=== PATIENT | male | born 1960 | race Caucasian/White ===

== ENCOUNTER 2024-01-24 07:50 | Emergency (ER) | payer MEDICARE, OTHER ==
[2024-01-24] MEDS: KETOROLAC 15 MG/ML 1 ML VIAL IVP STA (08:12)
[2024-01-24 08:20] LABS: Basophils % (A) 0 %; Eosinophils % (A) 0 %; HCT 35.7 % (39.0-53.0); HGB 11.8 gm/dL (13.0-17.5); Lymphocytes # (A) 0.6 k/uL (1.0-4.8); Lymphocytes % (A) 8 %; MCH 30.8 pg (25.0-35.0); MCHC 33.1 g/dL (31.0-37.0); MCV 93.2 fL (80.0-100.0); Mean Platelet Volume 7.9; Monocytes # (A) 0.5 k/uL (0-1.0); Monocytes % (A) 7 %; Neutrophils # (A) 6.6 k/uL (1.3-7.7); Neutrophils % (A) 83 %; Platelet Count 292 k/uL (150-450); RBC 3.84 m/uL (4.30-5.90); RDW 14.4 % (11.5-15.5); WBC 7.9 k/uL (3.8-10.6)
[2024-01-24 08:27] VITALS: RESP 18; TEMP 98.4
[2024-01-24] MEDS: MORPHINE SULFATE 4 MG/ML SYRINGE IVP STA (08:36)
--- NOTE | 2024-01-24 08:39 | XR ---
EXAMINATION TYPE: XR chest 2V, XR shoulder complete 3 views LT DATE OF EXAM: 01/24/2024 COMPARISON: None HISTORY: 64-year-old male syncope FINDINGS: Chest: The cardiomediastinal silhouette, aorta, and pulmonary vasculature are within normal limits. Lungs an d pleural spaces are clear. Left shoulder: There is a minimally comminuted and slightly obliqued surgical neck fracture of the proximal left hum erus. There is 9 mm impaction, lateral and anterior apex angulation, and 9 mm of anterior displacemen t. The glenohumeral joint appears intact. IMPRESSION: 1. Chest: No acute cardiopulmonary process. 2. Left shoulder: Minimally comminuted surgical neck fracture of the proximal left humerus. The main fracture line is slightly obliqued. 9 mm of impaction, 9 mm of anterior displacement, and lateral and anterior apex angulation.
[2024-01-24 08:43] LABS: ALT 41 U/L (4-49); AST 37 U/L (17-59); African American GFR (CKD) >90 (>60 ml/min/1.73 sqM); Albumin 3.4 g/dL (3.5-5.0); Alkaline Phosphatase 77 U/L (38-126); Anion Gap 9 mmol/L; Blood Urea Nitrogen 16 mg/dL (9-20); Calcium 8.9 mg/dL (8.4-10.2); Carbon Dioxide 22 mmol/L (22-30); Chloride 102 mmol/L (98-107); Glucose 129 mg/dL (74-99); Magnesium 1.9 mg/dL (1.6-2.3); Non-African American GFR(CKD) >90 (>60 ml/min/1.73 sqM); Potassium 4.3 mmol/L (3.5-5.1); Sodium 133 mmol/L (137-145); Total Bilirubin 0.4 mg/dL (0.2-1.3); Total Protein 5.9 g/dL (6.3-8.2)
--- NOTE | 2024-01-24 09:15 | ED ---
Fall HPI - General Chief Complaint: Fall Stated Complaint: Fall, syncope Time Seen by Provider: 01/24/24 08:00 Source: patient, EMS Mode of arrival: EMS - History of Present Illness Initial Comments: 64-year-old male with past medical history of diabetes, high cholesterol who presents to the emergency department as a transfer from [place]. Patient was standing in line to get breakfast when he had a syncopal episode. States he did not feel the episode coming on. Patient fell to the ground and landed on his left arm. According to the transfer note the fall was unwitnessed. Patient states that he was standing in line to get food and therefore there were several people around him. He denies hitting his head. He denies any neck or back pain. He is right-hand dominant. He denies any chest pain or shortness of breath. He has been at [place] for 10 days. Patient drinks alcohol. Denies use of any other drugs. No other alleviating, precipitating or modifying factors - Related Data Home Medications Medication Instructions Recorded Confirmed Atorvastatin [Lipitor] 40 mg PO HS 01/24/24 01/24/24 Empagliflozin [Jardiance] 25 mg PO DAILY 01/24/24 01/24/24 Ergocalciferol [Vitamin D2 (1250 1,250 mcg PO WEEKLY 01/24/24 01/24/24 Mcg = [id number] Iu)] Insulin Detemir (Levemir) [Levemir] 15 unit SQ DAILY 01/24/24 01/24/24 Previous Rx's Medication Instructions Recorded HYDROcodone/APAP 10-325MG [Mclean 1 tab PO Q4HR PRN 3 Days #18 tab 01/24/24 10-325] Ketorolac [Toradol] 10 mg PO Q8HR #15 tab 01/24/24 Allergies Allergy/AdvReac Type Severity Reaction Status Date / Time No Known Allergies Allergy Verified 01/24/24 08:38 Review of Systems ROS Statement: Those systems with pertinent positive or pertinent negative responses have been documented in the HPI. ROS Other: All systems not noted in ROS Statement are negative. Past Medical History Past Medical History: Diabetes Mellitus, Hyperlipidemia History of Any Multi-Drug Resistant Organisms: None Reported Past Surgical History: No Surgical Hx Reported Past Psychological History: No Psychological Hx Reported Smoking Status: Current every day smoker Past Alcohol Use History: Abuse Past Drug Use History: None Reported General Exam General appearance: alert, in no apparent distress Head exam: Present: atraumatic, normocephalic, normal inspection Eye exam: Present: normal appearance, PERRL, EOMI. Absent: scleral icterus, conjunctival injection, periorbital swelling ENT exam: Present: normal exam, mucous membranes moist Neck exam: Present: normal inspection. Absent: tenderness, meningismus, lymphadenopathy Respiratory exam: Present: normal lung sounds bilaterally. Absent: respiratory distress, wheezes, rales, rhonchi, stridor Cardiovascular Exam: Present: regular rate, normal rhythm, normal heart sounds. Absent: systolic murmur, diastolic murmur, rubs, gallop, clicks GI/Abdominal exam: Present: soft, normal bowel sounds. Absent: distended, tenderness, guarding, rebound, rigid Extremities exam: Present: tenderness (The proximal left humerus where there is overlying swelling and gross deformity. Patient cannot range of motion the left arm at all), normal capillary refill. Absent: pedal edema, joint swelling, calf tenderness Back exam: Present: normal inspection Neurological exam: Present: alert, oriented X3, CN II-XII intact Psychiatric exam: Present: normal affect, normal mood Skin exam: Present: warm, dry, intact, normal color. Absent: rash Course Vital Signs 01/24/24 01/24/24 01/24/24 07:57 09:53 10:10 Temperature 98.4 F 98.4 F Pulse Rate 83 74 76 Respiratory 18 18 18 Rate Blood Pressure 107/77 94/83 117/81 O2 Sat by Pulse 98 95 98 Oximetry Medical Decision Making - Medical Decision Making Was pt. sent in by a medical professional or institution (, PA, VP PATIENT, urgent care, hospital, or custodial...) When possible be specific @ -[place] Did you speak to anyone other than the patient for history (EMS, parent, family, police, friend...)? What history was obtained from this source @ -EMS Did you review nursing and triage notes (agree or disagree)? Why? @ -I reviewed and agree with nursing and triage notes Were old charts reviewed (outside hosp., previous admission, EMS record, old EK G, old radiological studies, urgent care reports/EKG's, custodial records)? Report findings @ -I reviewed patient's paperwork that comes from [place] with him Differential Diagnosis (chest pain, altered mental status, abdominal pain women, abdominal pain men, vaginal bleeding, weakness, fever, dyspnea, syncope, headache, dizziness, GI bleed, back pain, seizure, CVA, palpatations, mental health, musculoskeletal)? @ -Differential Musculoskeletal Muscular strain, contusion, ligament sprain, fracture, arthritis, septic arthritis, bursitis, cellulitis, muscle spasm, nerve compression, DVT, arterial occlusion, herpes zoster, electrolyte abnormality, tumor.... This is not meant to be in all inclusive list EKG interpreted by me (3pts min.). @ -Yes and demonstrates sinus rhythm with a rate of 82. NJ interval 149. QRS 115. QTc 425. No acute ST segment elevations or depressions X-rays interpreted by me (1pt min.). @ -Yes and demonstrates left humeral neck fracture CT interpreted by me (1pt min.). @ -None done U/S interpreted by me (1pt. min.). @ -None done What testing was considered but not performed or refused? (CT, X-rays, U/S, labs)? Why? @ -CT head was considered however patient does not believe he hit his head What meds were considered but not given or refused? Why? @ -None Did you discuss the management of the patient with other professionals (professionals i.e. , PA, VP PATIENT, lab, RT, psych nurse, social work nurse, air vice marshal, teacher, customer service security officer, bottle caser)? Give summary @ -I discussed the patient's care with Dr. Apple and with the orthopedic PA. Both of these individuals does not feel that the patient can be admitted to the hospital just for pain control Was smoking cessation discussed for >3mins.? @ -No Was critical care preformed (if so, how long)? @ -No Were there social determinants of health that impacted care today? How? (Homelessness, low income, unemployed, alcoholism, drug addiction, transportation, low edu. Level, literacy, decrease access to med. care, residential, rehab)? @ -Patient is in rehab Was there de-escalation of care discussed even if they declined (Discuss DNR or withdrawal of care, Hospice)? DNR status @ -No What co-morbidities impacted this encounter? (DM, HTN, Smoking, COPD, CAD, Cancer, CVA, ARF, Chemo, Hep., AIDS, mental health diagnosis, sleep apnea, morbid obesity)? @ -Alcohol abuse Was patient admitted / discharged? Hospital course, mention meds given and route, prescriptions, significant lab abnormalities, going to OR and other pertinent info. @ -Discharged. Upon arrival patient was placed into room 15. Thorough history and physical exam was performed. Twelve-lead EKG is obtained. Laboratory stud ies are conducted. X-ray was performed which demonstrates a left humeral neck fracture. Patient is placed in a sling. He is given Toradol, morphine and Dilaudid with only slight improvement in his pain. Because of this and knowing that the patient cannot go back to [place] with any narcotic medications I did call and speak with Dr. Apple and the orthopedic PA. They both refuse admission on the patient stating that he does not meet criteria for admission. I spoke with the patient in regards to this. He states that he will go back to [place] to collect his belongings but will eventually leave. Patient should follow-up with orthopedics in office. I did give him some referrals down in [facility] as patient is from [facility]. Patient will be provided with pain medications that he is to alternate. Instructed him to return for any new or worsening symptoms. Patient agreeable to plan he was discharged in stable condition Undiagnosed new problem with uncertain prognosis? @ -No Drug Therapy requiring intensive monitoring for toxicity (Heparin, Nitro, Insulin, Cardizem)? @ -No Were any procedures done? @ -No Diagnosis/symptom? @ -Acute syncope, fall, left humeral neck fracture Acute, or Chronic, or Acute on Chronic? @ -Acute Uncomplicated (without systemic symptoms) or Complicated (systemic symptoms)? @ -Complicated Side effects of treatment? @ -No Exacerbation, Progression, or Severe Exacerbation? @ -No Poses a threat to life or bodily function? How? (Chest pain, [place], [place], pneumonia, PE, COPD, DKA, ARF, appy, cholecystitis, CVA, Diverticulitis, Homicidal, Suicidal, threat to staff... and all critical care pts) @ -No - Lab Data Result diagrams: 01/24/24 08:07 01/24/24 08:07 Lab Results 01/24/24 01/24/24 01/24/24 Range/Units 08:07 08:07 08:07 WBC 7.9 (3.8-10.6) k/uL RBC 3.84 L (4.30-5.90) m/uL Hgb 11.8 L (13.0-17.5) gm/dL Hct 35.7 L (39.0-53.0) % MCV 93.2 (80.0-100.0) fL MCH 30.8 (25.0-35.0) pg MCHC 33.1 (31.0-37.0) g/dL RDW 14.4 (11.5-15.5) % Plt Count 292 (150-450) k/uL MPV 7.9 Neutrophils % 83 % Lymphocytes % 8 % Monocytes % 7 % Eosinophils % 0 % Basophils % 0 % Neutrophils # 6.6 (1.3-7.7) k/uL Lymphocytes # 0.6 L (1.0-4.8) k/uL Monocytes # 0.5 (0-1.0) k/uL Eosinophils # 0.0 (0-0.7) k/uL Basophils # 0.0 (0-0.2) k/uL Sodium 133 L (137-145) mmol/L Potassium 4.3 (3.5-5.1) mmol/L Chloride 102 (98-107) mmol/L Carbon Dioxide 22 (22-30) mmol/L Anion Gap 9 mmol/L BUN 16 (9-20) mg/dL Creatinine 0.68 (0.66-1.25) mg/dL Est GFR (CKD-EPI)AfAm >90 (>60 ml/min/1.73 sqM) Est GFR (CKD-EPI)NonAf >90 (>60 ml/min/1.73 sqM) Glucose 129 H (74-99) mg/dL Calcium 8.9 (8.4-10.2) mg/dL Magnesium 1.9 (1.6-2.3) mg/dL Total Bilirubin 0.4 (0.2-1.3) mg/dL AST 37 (17-59) U/L ALT 41 (4-49) U/L Alkaline Phosphatase 77 (38-126) U/L Troponin I <0.012 (0.000-0.034) ng/mL Total Protein 5.9 L (6.3-8.2) g/dL Albumin 3.4 L (3.5-5.0) g/dL Disposition Clinical Impression: Syncope, Fall, Left humeral fracture Disposition: HOME SELF-CARE Condition: Stable Instructions (If sedation given, give patient instructions): Arm Fracture in Adults (DC) Additional Instructions: Wear the sling. Follow-up with orthopedic surgeon. Alternate taking the pain medications every 4 hours. Return for any new or worsening symptoms Prescriptions: HYDROcodone/APAP 10-325MG [Mclean 10-325] 1 tab PO Q4HR PRN 3 Days #18 tab PRN Reason: Pain Ketorolac [Toradol] 10 mg PO Q8HR #15 tab Is patient prescribed a controlled substance at d/c from ED?: Yes When asked, does pt state using other controlled substances?: No If prescribed controlled substance>3 days was MAPS reviewed?: Prescribed <3 Days If opioid is for acute pain is fill amount 7 days or less?: Yes Referrals: Nonstaff,Physician [Primary Care Provider] - 1-2 days Willian Lynn DO [REFERRING] - 1-2 days Go Sweeney MD [REFERRING] - 1-2 days Time of Disposition: 09:14
[2024-01-24] MEDS: HYDROmorphone 1 MG/ML 1 ML SYRINGE IVP STA (09:38)
[2024-01-24 10:47] VITALS: BP 117/81; PULSE 76
== END 2024-01-24 10:10 | disposition home or self-care (01) ==
LOC: EC 07:50
DX: S42.212A Unspecified displaced fracture of surgical neck of left humerus, initial encounter for closed fracture (principal); R55 Syncope and collapse; E11.9 Type 2 diabetes mellitus without complications; E78.00 Pure hypercholesterolemia, unspecified; F17.200 Nicotine dependence, unspecified, uncomplicated; Z79.899 Other long term (current) drug therapy; Z79.4 Long term (current) use of insulin; W18.30XA Fall on same level, unspecified, initial encounter
CPT/HCPCS: 99285 ×2; 96374 ×2; 96375 ×3; 36415; 80053; 83735; 84484; 85025; 73030; 71046; J2270; J1170; J1885